=== PATIENT | female | born 1975 | race Caucasian/White ===

== ENCOUNTER → 2018-02-25 10:00 | Outpatient (CLI) | payer BC, SELFPAY ==
--- NOTE | 2018-02-25 10:08 | RAD_ITS ---
STUDY: X-RAY - CERVICAL SPINE REASON FOR EXAM: Female, 42 years old. Cervical radiculopathy. TECHNIQUE: 6 view(s) of the cervical spine were obtained. COMPARISON: None FINDINGS: Normal anterior atlantoaxial articulation. Normal odontoid process. Normal cervical lordosis. There is multi-level endplate spondylosis. There is degenerative disc disease with disc space narrowing at C6-C7. There is bilateral osseous foraminal narrowing at C6-C7. The soft tissue structures are unremarkable. RAD/Cerv Spine 4 or 5 Views IMPRESSION: Degenerative changes associated with bilateral osseous foraminal narrowing at C6-C7. Electronically Signed: Suzanna Lozada MD at 11:58 EDT Tel , Service support ,
== END ==
LOC: MTRAD 10:04
PROVIDERS: Family Provider Family Medicine; PCP Family Medicine; Visit Provider Family Medicine
DX: M54.12 Radiculopathy, cervical region (principal)
CPT/HCPCS: 72050

== ENCOUNTER → 2018-06-04 16:13 | Outpatient (CLI) | payer BC, SELFPAY ==
[2018-06-04 17:30] LABS: Absolute Lymphocyte Count 1.95 X10^3/ul (0.83-4.51); Absolute Neutrophil Count 4.7 X10^3/uL (2.0-7.7); Basophil# 0.02 X10^3/uL; Basophil% 0.3 % (0-1); Eosinophil# 0.08 X10^3/uL; Eosinophils% 1.1 % (0-5); Hematocrit 41.4 % (37-47); Hemoglobin 14.1 g/dl (12.0-15.0); Lymphocyte # 1.95 X10^3/ul (4.0); Lymphocyte % 26.4 % (19-41); Mean Corp Hgb Conc 34.1 g/gl (32-36); Mean Corpuscular Hgb 31.6 pg (27.0-32.0); Mean Corpuscular Volume 92.8 fL (81-99); Mean Platelet Vol. 11.5 fl (6.2-12.0); Monocyte# 0.62 X10^3/uL; Monocyte% 8.4 % (0-10); Neutrophil # 4.72 X10^3/uL (2.7-7.7); Neutrophil % 63.7 % (47-70); POSITIVE COUNT NO; POSITIVE DIFFERENTIAL NO; POSITIVE MORPHOLOGY NO; Platelet Count 228 K/mm3 (150-450); RBC Distribution Width SD 47.3 fl (35.1-43.9); Red Blood Count 4.46 M/mm3 (4.2-5.4); White Blood Count 7.4 K/mm3 (4.4-11.0)
[2018-06-04 17:48] LABS: Anion Gap 10 (5-15); BUN 6 mg/dL (7-18); BUN/Creat Ratio 8.1 RATIO (10-20); Calcium,Total 8.9 mg/dL (8.5-10.1); Chloride 105 mmol/L (98-107); Creatinine, Serum 0.74 mg/dL (0.55-1.02); EST Glomerular Filtration Rate 91 mL/min (>60); Est Glom Filt Rate - Afr Amer 110 mL/min (>60); Glucose 90 mg/dL (74-106); Potassium 3.8 mmol/L (3.5-5.1); Sodium Level 140 mmol/L (136-145)
== END ==
PROVIDERS: Family Provider Family Medicine; PCP Family Medicine; Visit Provider Family Medicine
DX: Z01.818 Encounter for other preprocedural examination (principal)
CPT/HCPCS: 36415; 80048; 85025

== ENCOUNTER 2018-07-03 07:34 | Day surgery (SDC) | payer BC, SELFPAY ==
--- NOTE | 2018-07-03 | BUN_PTH ---
PATIENT: MAGGY WALKER [place] [facility] [id number] AGE/SX: 43/F ROOM: RE07/03/[address]: Dr. Melchor Carter DPM : 1975 BED: DIS: 07/03/2018 SPEC #: [id number] RECD: 07/03/18 15:15 STATUS: ASIF ZAYRA #: [id number] MIRIAN: 07/03/18 00:[address]: Melchor Carter DEPT: SURGICAL PATHOLOGY RECD BY: Carlos Strange ENTERED: 07/03/18 15:15 SP TYPE: ELYSSA MCELROY DR: Dr. Abe Peralta MD Tissues: Bony tissue, NOS Procedures: Decalcification bone/plaque Surgery Specimen Level III HEADER OPERATION: First metatarsal osteotomy, bunionectomy/great toe Kyle PRE-OP DIAGNOSIS: Hallux valgus, left TISSUE SUBMITTED: Elyssa MICROSCOPIC DIAGNOSIS Bunion: Pieces of bone with reactive changes, clinically hallux valgus. STANLEY:billy 07/08/18 MICROSCOPIC DESCRIPTION Slides are reviewed. GROSS DESCRIPTION Received in fixative is one container labeled with the patient's name and designated bunion. The specimen consists of two pieces of bone measuring in aggregate 3 x 2 x 0.3 cm. The entire specimen is submitted in one cassette after decalcification. / STANLEY:billy 07/03/18 TC:5 CPT: 62421, 77530
[2018-07-03 08:11] VITALS: BP 123/80; PULSE 95; RESP 16; TEMP 37.1; O2SAT 100; BMI 19.3
--- NOTE | 2018-07-03 08:30 | RAD_ITS ---
STUDY: X-RAY - LEFT FOOT CLINICAL: Female, 43 years old. Bunionectomy TECHNIQUE: 3 view(s) of the foot. # of Images: 4 COMPARISON: None. FINDINGS: Multiple intraoperative images demonstrate changes of bunionectomy. Alignment is within normal limits. RAD/Foot min 3 Views IMPRESSION: Bunionectomy changes. For full details please see the operative note. Electronically Signed: Glenn Cerda MD at 7:42 EDT Tel , Service support ,
[2018-07-03] MEDS: Cefazolin 2 GM in 0.9% Normal Saline 100 ML IV (09:21)
[2018-07-03] MEDS: Bupivacaine Mpf 0.5% 30 ML VIAL (10:19)
--- NOTE | 2018-07-03 10:27 | RAD_ITS ---
STUDY: X-RAY - LEFT FOOT CLINICAL: Female, 43 years old. POST-OP 1ST METATARSAL OSTEOTOMY AND BUNIONECTOMY TECHNIQUE: 3 view(s) of the foot. # of Images: 3 COMPARISON: None. FINDINGS: Normal talus, calcaneus, and tarsal bones. Normal visualized subtalar, talonavicular, calcaneocuboid, tarsal and tarsometatarsal articulations. Postsurgical changes in the first metatarsal. 2 screws are noted in the first metatarsal are in good position. Normal metatarsophalangeal joint of the great toe. Normal tibial and fibular sesamoid bones. Normal interphalangeal joint of the great toe. Normal phalanges of the great toe. Normal second through fifth metatarsophalangeal joints. Normal interphalangeal joints and phalanges of the lesser toes. Air bubbles are seen in the soft tissues of the medial aspect of the left foot are consistent with recent surgery. RAD/Foot min 3 Views IMPRESSION: Postsurgical changes in the first metatarsal. Electronically Signed: Sindy Avalos MD at 14:52 EDT Tel , Service support ,
--- NOTE | 2018-07-03 10:30 | DCINST_ITS ---
Discharge Diet: Light diet - advance as tolerated Discharge Activity: May Not Drive Weight Bearing Status: No weight bearing - No weight on left foot Keep extremity elevated above heart level: Left Leg - Keep left foot elevated for at least 50 minutes of every hour Call your doctor if your incision/area has: Continuous Slow Oozing, Sudden Increased Bleeding, Foul Smelling Discharge Call your doctor if you observe: Fever of 101 or Higher, Coldness, Increased Pain, Shortness of breath, Increased palpitations (irregular heartbeat), Calf discomfort, Uncontrolled pain Cleanse incision/area with: Do not get Incision Wet, Keep Dressing Clean & Dry Allergies/Adverse Reactions: Allergies No Known Allergies Allergy (Verified 06/26/18 14:50) Medications to take at Discharge Hydrocodone/Acetaminophen [Vicodin 5-300 mg Tablet] 1 - 2 tab PO Q6H PRN PRN 2 Days #10 tab 07/03/18 The following prescriptions were given: Hydrocodone/Acetaminophen [Vicodin 5-300 mg Tablet] 1 - 2 tab PO Q6H PRN PRN 2 Days #10 tab PRN Reason: Pain Primary Care Physician: Abe Peralta MD [Primary Care Provider] - Test Results: Test results from this visit will be discussed in further detail at your follow- up appointment, if applicable. Please Follow Up With: Melchor Carter DPM When: within 1 week, sooner if needed
--- NOTE | 2018-07-03 10:30 | PCM.OPRPT ---
Report of Operation Date of Procedure: 07/03/18 Pre-Operative Diagnosis: Hallux Valgus bunion left foot Post-Operative Diagnosis: Same Surgery/Procedure Performed:: 1st metatarsal osteotomy bunionectomy left foot Description of Surgical Findings:: hallux valgus bunion left foot 911 telecommunicator: Dr. Owens Type of Anesthesia:: General Specimen's removed: Bunion left foot sent to pathology Estimated Blood Loss (mL): 1mL Description of Procedure: Indications: This is a 43 year-old female who has chronic left foot bunion pain. She has a significant bunion deformity present. She has a lot of trouble with shoes and with activities. The bunion is really bothering, she has tried nonsurgical care however her symptoms persist and are only getting worse. She was asking about surgical options. We discussed all of the options, and she elected to proceed with first metatarsal osteotomy bunionectomy with a possible great toe osteotomy.This was discussed with her in great detail. We reviewed all the possible benefits, risks, goals and expectations. She expressed understanding and agreement. We also reviewed the typical postoperative and expected postoperative course. She expressed understanding and agreement and wanted to proceed forward with surgical intervention. All alternative options were discussed with her and all the possible benefits, risks of the alternative options were discussed with her as well in detail. Smoking/tobacco cessation was reviewed and discussed with her in detail. She expressed understanding and agreement and again elected to proceed for surgical intervention. The consent form was reviewed with her and she freely signed them. No guarantees were given nor implied. She was cleared by her PCP. Operative Procedure: The patient was brought back into the operating room and was placed onto the operative table in the supine position. She was carefully secured to the operating room table with safety belt around her waist. The patient did receive 2 grams of intravenous Ancef for antibiotic prophylaxis. The patient received general LMA anesthesia per the anesthesiologist. A well-padded pneumatic tourniquet was applied around her left ankle. The left foot was scrubbed, prepped and draped in the usual aseptic fashion. Further attention was directed to the left foot, there was significant hallux valgus bunion deformity. There was a large medial eminence of the 1st metatarsal head. There was limitation of the 1st metatarsal phalangeal joint range of motion. The foot was elevated for 3 minutes and the right ankle pneumatic tourniquet was inflated to 250 mmHg. Using a #15 scalpel blade, an incision was made just medial to the extensor hallucis longus tendon overlying the dorsal aspect of the first metatarsal and over the first metatarsophalangeal joint. Careful dissection was completed down to the first metatarsal and first metatarsophalangeal joint. The capsule of the first metatarsophalangeal joint was incised dorsally as well as the periosteum of the first metatarsal was incised dorsally using a #15 scalpel blade and these were carefully partially reflected exposing the distal first metatarsal and the first metatarsal. There was noted to be some synovitis to the 1st metatarsal phalangeal joint. The first metatarsal head was visualized, there was noted to some chronic degenerative changes with thinning of the cartilage present. There was a large medial eminence of the first metatarsal head and using a powered sagittal saw, this was gently resected preserving the sagittal groove, this was sent to pathology. A scarf osteotomy was completed using a powered sagittal saw to the first metatarsal. This was done in standard fashion with a longitudinal arm, a dorsal distal arm and a plantar proximal arm. The capital fragment was gently and carefully shifted laterally reducing the first intermetatarsal angle to normal and making the 1st metatarsal phalangeal joint congruent. A 0.062 inch Kwire was used to stabilize the osteotomy site. The osteotomy site was then fixated using rigid open reduction and internal fixation technique using two 2.7 mm Synthes screws. The Kwire was removed. The medial capsule of the 1st metatarsal phalangeal joint was noted to be attenuated so a capsuloraphy was completed to the medial 1st metatarsal phalangeal joint capsule - a pie wedge of capsule was excised and the capsule was reapproximated using 3-0 Vicryl. At this time there was smooth range of motion to the 1st metatarsal phalangeal joint. The osteotomy was stable with good bone to bone contact and good alignment present, screws intact in good position. There was good compression across the osteotomy site. The hallux was in good alignment. Intraoperative fluoroscopy confirmed this as well. A lateral release or carole osteotomy was not needed. The site was flushed out with copious amounts of normal saline solution. The periosteum and the first metatarsophalangeal joint capsule were carefully reapproximated using 3-0 Vicryl. The subcutaneous tissue layer was carefully reapproximated using 3-0 Vicryl. The skin was carefully reapproximated using 4-0 Monocryl. A vital structure including all vital neurovascular and tendon structures were properly identified, protected and retracted as necessary throughout the procedure. The pneumatic tourniquet was deflated at 61 minutes. There was immediate return of warmth and perfusion to the foot and all five toes. CFT was less than 2 seconds to all toes. Temperature was normal. A total of 17mL of 0.5% Bupivacaine plain was given as a local nerve block around the surgical site. Cavilon was painted to the edges of the suture skin incisions and steristrips were applied across the sutured skin incisions. A dressing was applied which consisted of Betadine soaked adaptic, 4x4 gauze, Kerlix and radha bandage. The patient tolerated the above procedure well and anesthesia well with no complications. The patient was transported from the operative room to the recovery room with vital signs stable and in good condition. Post operative orders were placed, and post operative instructions were reviewed with the patient and her mother who was with her today (verbal and written). No weightbearing right forefoot, keep the dressing clean, dry and intact. Keep foot elevated for at least 50 minutes of every hour. Post operative prescriptions for Vicodin for pain control was dispensed. Patient to follow up this Friday in office, sooner if needed. Also of note post operative xrays were obtained of the left foot in the recovery room, which were reviewed. These confirmed 1st metatarsal osteotomy bunionectomy, congruent 1st metatarsal phalangeal joint, normal 1st IM angle and normal hallux abductus angle, sesamoids in good position, screws intact and in good position. Grafts/Implants Used: 2 x 2.7mm Synthes screws - Complications None
[2018-07-03 10:35] VITALS: BP 120/86; BP 123/80; PULSE 113; RESP 14; TEMP 37; O2SAT 95
[2018-07-03 10:45] VITALS: BP 123/80; BP 127/88; PULSE 71; RESP 14; O2SAT 98
[2018-07-03 10:59] VITALS: BP 116/84; BP 123/80; PULSE 76; RESP 14; O2SAT 98
[2018-07-03 11:16] VITALS: BP 122/96; BP 123/80; PULSE 98; RESP 16; TEMP 37; O2SAT 97
[2018-07-03 11:47] VITALS: BP 120/82; BP 123/80; PULSE 84; RESP 16; TEMP 36.9; O2SAT 98
== END 2018-07-03 11:51 | disposition home or self-care (01) ==
LOC: SDC 07:35 → AC 07:36
PROVIDERS: Family Provider Family Medicine; PCP Family Medicine; Referring Provider Podiatrist; Visit Provider Podiatrist
PROC: (CPT 28298; principal; 2018-07-03 09:15)
DX: M20.12 Hallux valgus (acquired), left foot (principal); M21.612 Bunion of left foot; M65.872 Other synovitis and tenosynovitis, left ankle and foot; F17.200 Nicotine dependence, unspecified, uncomplicated
CPT/HCPCS: 28296; 73630; 76000; 88304; 88311; C1713; J7120; J2405

== ENCOUNTER → 2023-06-27 | Outpatient (CLI) | payer SELFPAY ==
[2023-06-27 08:28] LABS: Bacteria 0 SEEN /hpf (None Seen); Mucous, Urine 0 SEEN /hpf (<or=2+); Red Blood Cells-Urine 0 SEEN /hpf (0-5); Squamous Epithelial Cells - UA 0 SEEN /hpf (5-10); White Blood Cells 0 SEEN /hpf (0-5)
[2023-06-27 10:01] LABS: Absolute Lymphocyte Count 1.37 X10^3/uL (0.83-4.51); Absolute Neutrophil Count 2.5 X10^3/uL (2.0-7.7); Basophil# 0.03 X10^3/uL; Basophil% 0.7 % (0-1); Eosinophil# 0.14 X10^3/uL; Eosinophils% 3.2 % (0-5); Hemoglobin 14.5 g/dL (12.0-15.0); Lymphocyte # 1.37 X10^3/ul (0.83-4.51); Lymphocyte % 31.4 % (19-41); Mean Corpuscular Hgb 29.4 pg (27.0-32.0); Mean Corpuscular Volume 89.1 fL (81-99); Mean Platelet Vol. 11.3 fl (6.2-12.0); Monocyte# 0.36 X10^3/uL; Monocyte% 8.2 % (0-10); NRBC Flagged by Analyzer 0 % (0-5); Neutrophil # 2.46 X10^3/uL (2.7-7.7); Neutrophil % 56.3 % (47-70); Platelet Count 271 K/mm3 (150-450); RBC Distribution Width CV 13.9 % (11.6-14.6); RBC Distribution Width SD 45.2 fl (35.1-43.9); Red Blood Count 4.94 M/mm3 (4.2-5.4); White Blood Count 4.4 K/mm3 (4.4-11.0)
[2023-06-27 10:21] LABS: Color, Urine Yellow (Yellow); Glucose, Dipstick Normal (Normal); Ketone-Dipstick Negative (Negative); Leukocyte Esterase-Dipstick Negative /ul (Negative); Nitrite-Dipstick Negative (Negative); Occult Blood-Urine Negative /ul (Negative); Protein-Dipstick Negative (Negative); Specific Gravity, Urine 1.005 (1.002-1.030); Urine Bilirubin Dipstick Negative (Negative); Urine Clarity Clear (Clear); Urine Urobilinogen Normal (Normal)
[2023-06-27 10:54] LABS: AST(SGOT) 17 U/L (15-37); Alanine Aminotransfer ALT/SGPT 22 U/L (13-56); Albumin, Serum 3.7 g/dL (3.2-5.0); Alkaline Phosphatase 81 U/L (45-117); Anion Gap 7 (5-15); BUN 11 mg/dL (7-18); BUN/Creat Ratio 13.8 RATIO (10-20); Calcium,Total 8.9 mg/dL (8.5-10.1); Chloride 106 mmol/L (98-107); Cholesterol 225 mg/dL (200); EST Glomerular Filtration Rate 82 mL/min (>60); Est Glom Filt Rate - Afr Amer 99 mL/min (>60); Globulin 3.6 g/dL (2.2-4.2); Glucose 89 mg/dL (74-106); High Density Lipoprotein 106 mg/dL; Potassium 4.1 mmol/L (3.5-5.1); Protein, Total 7.3 g/dL (6.4-8.2); Sodium Level 141 mmol/L (136-145); Thyroid Stim Hormone (TSH) 0.78 uIU/mL (0.358-3.74); Triglycerides 87 mg/dL; Very Low Density Lipoprotein 17 mg/dL (5-40)
== END | disposition home or self-care (01) ==
PROVIDERS: PCP Family Medicine; Visit Provider Family Medicine
DX: Z00.00 Encounter for general adult medical examination without abnormal findings (principal)
CPT/HCPCS: 80053; 80061; 81001; 84443; 85025

== ENCOUNTER → 2024-07-02 | Outpatient (CLI) | payer OTHER, SELFPAY ==
[2024-07-02 09:15] LABS: Mucous, Urine 0 SEEN /hpf (<or=2+); Red Blood Cells-Urine 0 SEEN /hpf (0-5); Squamous Epithelial Cells - UA 0 SEEN /hpf (5-10)
[2024-07-02 10:36] LABS: Absolute Lymphocyte Count 1.52 X10^3/uL (0.83-4.51); Basophil# 0.03 X10^3/uL; Basophil% 0.5 % (0-1); Eosinophil# 0.13 X10^3/uL; Eosinophils% 2.1 % (0-5); Hematocrit 40.8 % (37-47); Hemoglobin 13.2 g/dL (12.0-15.0); Lymphocyte # 1.52 X10^3/ul (0.83-4.51); Lymphocyte % 24.7 % (19-41); Mean Corp Hgb Conc 32.4 g/dL (32-36); Mean Corpuscular Hgb 28.5 pg (27.0-32.0); Mean Corpuscular Volume 88.1 fL (81-99); Mean Platelet Vol. 11.2 fl (6.2-12.0); Monocyte# 0.46 X10^3/uL; Monocyte% 7.5 % (0-10); NRBC Flagged by Analyzer 0 % (0-5); Neutrophil # 3.98 X10^3/uL (2.7-7.7); Neutrophil % 64.7 % (47-70); Platelet Count 313 K/mm3 (150-450); RBC Distribution Width CV 13.9 % (11.6-14.6); RBC Distribution Width SD 44.3 fl (35.1-43.9); Red Blood Count 4.63 M/mm3 (4.2-5.4); White Blood Count 6.2 K/mm3 (4.4-11.0)
[2024-07-02 11:23] LABS: Color, Urine Straw (Yellow); Glucose, Dipstick Normal (Normal); Ketone-Dipstick Negative (Negative); Leukocyte Esterase-Dipstick Negative /ul (Negative); Nitrite-Dipstick Negative (Negative); Occult Blood-Urine Negative /ul (Negative); Protein-Dipstick Negative (Negative); Specific Gravity, Urine 1.005 (1.002-1.030); Urine Bilirubin Dipstick Negative (Negative); Urine Clarity Clear (Clear); Urine Urobilinogen Normal (Normal); Urine pH 6.5 (5.0 - 8.0)
[2024-07-02 11:38] LABS: Bacteria RARE /hpf (None Seen); White Blood Cells 0-5 SEEN /hpf (0-5)
[2024-07-02 12:02] LABS: AST(SGOT) 18 U/L (15-37); Alanine Aminotransfer ALT/SGPT 22 U/L (13-56); Albumin, Serum 3.6 g/dL (3.2-5.0); Alkaline Phosphatase 104 U/L (45-117); Anion Gap 6 (5-15); BUN 10 mg/dL (7-18); BUN/Creat Ratio 14.4 RATIO (10-20); Calcium,Total 9.2 mg/dL (8.5-10.1); Chloride 108 mmol/L (98-107); Cholesterol 219 mg/dL (200); EST Glomerular Filtration Rate 95 mL/min (>60); Est Glom Filt Rate - Afr Amer 115 mL/min (>60); Globulin 3.7 g/dL (2.2-4.2); Glucose 92 mg/dL (74-106); High Density Lipoprotein 82 mg/dL; Protein, Total 7.3 g/dL (6.4-8.2); Sodium Level 139 mmol/L (136-145); Triglycerides 106 mg/dL; Very Low Density Lipoprotein 21 mg/dL (5-40)
== END | disposition home or self-care (01) ==
LOC: MTLAB 09:12
PROVIDERS: PCP Family Medicine; Referring Provider Family Medicine; Visit Provider Family Medicine
DX: Z00.00 Encounter for general adult medical examination without abnormal findings (principal)
CPT/HCPCS: 36415; 80053; 80061; 81001; 84443; 85025

== ENCOUNTER → 2024-07-23 | Outpatient (CLI) | payer OTHER, SELFPAY | END | disposition home or self-care (01) | LOC: OPBI 12:31 | PROVIDERS: PCP Family Medicine; Referring Provider Family Medicine; Visit Provider Family Medicine | DX: Z12.31 Encounter for screening mammogram for malignant neoplasm of breast (principal) | CPT/HCPCS: 77063; 77067 ==

== ENCOUNTER → 2025-07-08 | Outpatient (CLI) | payer OTHER, SELFPAY ==
[2025-07-08 08:51] LABS: Mucous, Urine 0 SEEN /hpf (<or=2+); Red Blood Cells-Urine 0 SEEN /hpf (0-5)
[2025-07-08 09:57] LABS: Color, Urine Straw (Yellow); Glucose, Dipstick Normal (Normal); Ketone-Dipstick Negative (Negative); Leukocyte Esterase-Dipstick Negative /ul (Negative); Nitrite-Dipstick Negative (Negative); Occult Blood-Urine Negative /ul (Negative); Protein-Dipstick Negative (Negative); Specific Gravity, Urine 1.010 (1.002-1.030); Urine Bilirubin Dipstick Negative (Negative)
[2025-07-08 09:58] LABS: Hematocrit 40.0 % (37-47); Hemoglobin 13.3 g/dL (12.0-15.0); Immature Granulocytes Count 0.020 X10^3/uL (0.0-0.0); Mean Corp Hgb Conc 33.3 g/dL (32-36); Mean Corpuscular Volume 84.9 fL (81-99); Mean Platelet Vol. 11.2 fl (6.2-12.0); NRBC Flagged by Analyzer 0 % (0-5); Platelet Count 291 K/mm3 (150-450); RBC Distribution Width CV 13.8 % (11.6-14.6); RBC Distribution Width SD 43.0 fl (35.1-43.9); Red Blood Count 4.71 M/mm3 (4.2-5.4); White Blood Count 6.8 K/mm3 (4.4-11.0)
[2025-07-08 10:07] LABS: Squamous Epithelial Cells - UA 0-5 SEEN /hpf (5-10)
[2025-07-08 10:45] LABS: AST(SGOT) 26 U/L (<=31); Alanine Aminotransfer ALT/SGPT 23 U/L (<=34); Albumin, Serum 4.3 g/dL (3.5-5.0); Alkaline Phosphatase 89 U/L (35-104); Anion Gap 10 (5-15); BUN 11 mg/dL (4-19); BUN/Creat Ratio 17.3 RATIO (10-20); Calcium,Total 9.4 mg/dL (7.6-11.0); Carbon Dioxide 26.1 mmol/L (21.0-32.0); Chloride 104 mmol/L (98-108); Cholesterol 230 mg/dL (<=200); Globulin 2.8 g/dL (2.2-4.2); Glucose 105 mg/dL (70-99); Low Density Lipoprotein Calc. 132 mg/dL; Potassium 4.6 mmol/L (3.3-5.1); Triglycerides 115 mg/dL; Very Low Density Lipoprotein 23 mg/dL (5-40); cholesterol:hdl ratio screen 2.94
== END | disposition home or self-care (01) ==
LOC: MFPLAB 08:49
PROVIDERS: PCP Family Medicine; Visit Provider Family Medicine
DX: Z00.00 Encounter for general adult medical examination without abnormal findings (principal); R73.09 Other abnormal glucose; R63.5 Abnormal weight gain
CPT/HCPCS: 36415; 80053; 80061; 81001; 83036; 84439; 84443; 85025